=== PATIENT | female | born 1985 | race African-American/Black ===

== ENCOUNTER 2022-08-07 14:16 | Emergency (ER) | payer OTHER ==
[2022-08-07 14:29] VITALS: BP 121/77; PULSE 87; RESP 20; TEMP 98.6; BMI 37.2
[2022-08-07] MEDS ORDERED: ONDANSETRON *ODT* 4 MG TABLET SL ONE (15:13)
[2022-08-07] MEDS ORDERED: ONDANSETRON *ODT* 4 MG TABLET ONE (15:23)
== END 2022-08-07 15:54 | disposition home or self-care (01) ==
LOC: FER 14:16
DX: R05.1 Acute cough (principal); R09.81 Nasal congestion; R07.89 Other chest pain
CPT/HCPCS: 0241U-QW; 71046-TC-FY; 99284-25; Q0162

== ENCOUNTER 2024-05-17 12:00 | Emergency (ER) | payer OTHER ==
[2024-05-17 12:22] VITALS: BP 122/82; TEMP 98.6; BMI 38.5
[2024-05-17 13:10] VITALS: PULSE 85; RESP 16
[2024-05-17 15:54] LABS: HIV INTERPRETATION NEGATIVE (NEGATIVE)
== END 2024-05-17 13:37 | disposition home or self-care (01) ==
LOC: FER 12:00
DX: R55 Syncope and collapse (principal); R42 Dizziness and giddiness
CPT/HCPCS: 36415; 82962; 84703; 86803; 87389; 93005; 99284-25